=== PATIENT | female | born 1990 | race Caucasian/White ===

== ENCOUNTER 2023-01-29 14:27 | Emergency (ER) | payer OTHER ==
[~2023-01-29] VITALS: Ht 165.1 cm; Wt 65.0 kg
[2023-01-29 15:19] VITALS: BP 147/98
[2023-01-29] MEDS ORDERED: LIDOCAINE 1% HCL (LOCAL ANESTH.) INJ 20ML MDV IJ ONE (15:45)
[2023-01-29] MEDS ORDERED: CEPH-510 PO (15:52)
== END 2023-01-29 15:55 | disposition home or self-care (01) ==
LOC: ER 14:27
DX: S81.012A Laceration without foreign body, left knee, initial encounter (principal); Z79.2 Long term (current) use of antibiotics; W10.9XXA Fall (on) (from) unspecified stairs and steps, initial encounter; Y93.89 Activity, other specified; Y92.89 Other specified places as the place of occurrence of the external cause; Y99.8 Other external cause status
CPT/HCPCS: 12001; 73562; 99283; J2001